=== PATIENT | male | born 1975 | race Caucasian/White ===

== ENCOUNTER 2017-02-28 22:06 | Emergency (ER) | payer OTHER ==
[~2017-02-28] VITALS: Ht 172.7 cm; Wt 79.0 kg
[2017-03-01] MEDS ORDERED: LORAZEPAM 2MG/ML CPJ IV STA (00:22)
[2017-03-01] MEDS ORDERED: SODIUM CHLORIDE 0.9% 1,000 ML IV ONE (00:22)
[2017-03-01 02:14] VITALS: BP 143/89
== END 2017-03-01 02:17 | disposition home or self-care (01) ==
LOC: ER 22:15
DX: F41.9 Anxiety disorder, unspecified (principal); F15.10 Other stimulant abuse, uncomplicated
CPT/HCPCS: 93005; 96361; 96374; 99284; J2060; J7030; Z7610; 96360

== ENCOUNTER 2023-01-27 13:04 | Emergency (ER) | payer BC, OTHER ==
[~2023-01-27] VITALS: Ht 172.7 cm; Wt 77.0 kg
[2023-01-27 13:13] VITALS: BP 141/86
== END 2023-01-27 18:19 | disposition left against medical advice (07) ==
LOC: ER 13:04
DX: Z53.21 Procedure and treatment not carried out due to patient leaving prior to being seen by health care provider (principal)
CPT/HCPCS: 93005; 99281